=== PATIENT | female | born 2000 | race Two or more races ===

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

== ENCOUNTER → 2019-01-28 | Outpatient (REF) | payer OTHER | LOC: M SFHCLERA 12:24 | PROVIDERS: ATTEND Nurse Practitioner Family | DX: J02.9 Acute pharyngitis, unspecified (principal) ==

== ENCOUNTER → 2019-07-15 | Outpatient (CLI) | payer OTHER ==
--- NOTE | 2019-07-15 15:02 | REP ---
Right ankle: Five views. History: Injury. Findings: Five views of the right ankle demonstrate moderate to marked soft tissue swelling laterally. Soft tissue swelling is seen anteriorly as well. There is a large triangular calcific opacity in the extra-articular soft tissues at the anterior joint line consistent with opaque debris or stones in the case of penetrating injury. This should be correlated with mechanism of injury or prior history. There is some adjacent tiny opaque debris as well. No intra-articular gas is seen. No fracture or intra-articular calcifications. Impression: Extra-articular triangular calcific material, question opaque debris. Anterolateral soft tissue swelling. No fracture seen. Electronically Signed by Paramjit Vidal MD 07/15/2019 06:35 P
== END ==
LOC: M SMT 13:57
PROVIDERS: ATTEND Physician Assistant
DX: S99.911A Unspecified injury of right ankle, initial encounter (principal); X58.XXXA Exposure to other specified factors, initial encounter; Y92.89 Other specified places as the place of occurrence of the external cause

== ENCOUNTER → 2019-08-01 | Outpatient (REF) | LOC: M LAB REF 12:15 | DX: B99.9 Unspecified infectious disease (principal) ==

== ENCOUNTER → 2019-09-16 | Outpatient (REF) | payer OTHER | LOC: M SFHCPLAZ 11:30 | PROVIDERS: ATTEND Internal Medicine Infectious Disease | DX: L03.119 Cellulitis of unspecified part of limb (principal) | CPT/HCPCS: 87070; 87102; 87116; 87206; G0463 ==

== ENCOUNTER → 2019-09-17 | Outpatient (CLI) | payer OTHER ==
[~2019-09-17] MED LIST: PROHANCE 279.3MG/ML 15ML VIAL (A9576) As Ordered ONE; PROHANCE 279.3MG/ML 5ML VIAL (A9576) As Ordered ONE
--- NOTE | 2019-09-18 07:38 | REP ---
MRI RIGHT FOOT WITH AND WITHOUT CONTRAST: TECHNIQUE: Multiple sequences obtained in the axial, coronal, and sagittal planes prior to and following the intravenous administration of 17 mL ProHance. There is a history of soft tissue foreign body at the anterior aspect of the ankle. That area is marked on the skin. At the site of the soft tissue foreign body there is subcutaneous hypointense signal on both T1 and T2-weighted images compatible with subcutaneous foreign material. There is mild ill-defined edema in the adjacent soft tissues. No fluid collection or abscess is seen. I do not see significant soft tissue enhancement or evidence of cellulitis. Osseous structures of the ankle and foot demonstrate normal bone marrow signal. There is no bone marrow edema or occult fracture. There is no abnormal bone marrow enhancement with no evidence of osteomyelitis. The tendons and ligaments of the ankle are intact. Plantar tendon is intact. The flexor and extensor tendons of the foot are intact without significant tenosynovitis. IMPRESSION: Ill-defined hypointense signal in the subcutaneous region at the site of suspected soft tissue foreign body, compatible with foreign material at that location. There is mild adjacent soft tissue edema, but there are no MR findings of cellulitis, abscess or osteomyelitis. Electronically Signed by Ildefonso Oconnor MD 09/18/2019 07:51 P
== END ==
LOC: M RAD 15:01
PROVIDERS: ATTEND Internal Medicine Infectious Disease
DX: L03.119 Cellulitis of unspecified part of limb (principal); S90.851S Superficial foreign body, right foot, sequela; X58.XXXS Exposure to other specified factors, sequela; Y92.9 Unspecified place or not applicable
CPT/HCPCS: 73720; A9576